=== PATIENT | female | born 1985 | race Two or more races ===

== ENCOUNTER 2020-06-02 10:31 | Emergency (ER) | payer MEDICAID ==
[~2020-06-02] VITALS: Ht 165.1 cm; Wt 65.8 kg
[2020-06-02] MEDS ORDERED: FLUCONAZOLE (100 MG) 100 MG TABLET ONE (11:52)
[2020-06-02] MEDS ORDERED: AZITHROMYCIN 250 MG TABLET ONE (11:52)
[2020-06-02] MEDS ORDERED: CEFTRIAXONE 500 MG VIAL ONE (11:52)
[2020-06-02] MEDS ORDERED: LIDOCAINE /MPF 1% VIAL 5 ML VIAL ONE (11:53)
[2020-06-02 11:56] LABS: BASOPHILS # (AUTO) 0.1 /CMM (0.0-0.2); BASOPHILS % (AUTO) 0.9 % (0.0-2.0); EOSINOPHILS % (AUTO) 0.9 % (0.0-6.0); HEMATOCRIT 40 % (33-45); HEMOGLOBIN 12.8 g/dL (11.5-14.8); LYMPHOCYTES % (AUTO) 23.1 % (20.0-44.0); MEAN CORPUSCULAR HGB CONC 32 g/dl (31.0-36.0); MEAN CORPUSCULAR VOLUME 82 fL (82-100); MONOCYTES # (AUTO) 0.4 /CMM (0.1-1.30); MONOCYTES % (AUTO) 4.9 % (2.0-12.0); NEUTROPHILS % (AUTO) 70.2 % (43.0-81.0); PLATELET COUNT (AUTO) 244 /CMM (150-450); RED BLOOD CELL COUNT(AUTO) 4.83 MIL/uL (4.0-5.2); WHITE BLOOD COUNT (AUTO) 8.6 K/uL (4.3-11.0)
[2020-06-02] MEDS: AZITHROMYCIN 250 MG TABLET PO ONE (12:03)
[2020-06-02] MEDS: CEFTRIAXONE 500 MG VIAL IM ONE (12:03)
[2020-06-02] MEDS: FLUCONAZOLE (100 MG) 100 MG TABLET PO ONE (12:03)
--- NOTE | 2020-06-02 12:05 | NUR ---
VAGINAL PAIN & DISCHARGE. PT AAOX4, VSS. RR EVEN & UNLABORED. MEDICATED PER ERMD ORDERED, PT NICA WELL.
[2020-06-02 12:07] LABS: CALCIUM, SERUM 9.8 mg/dL (8.5-10.1); CREATININE 0.6 mg/dL (0.6-1.3); POTASSIUM 4.2 mmol/L (3.5-5.1)
[2020-06-02 12:56] LABS: APPEARANCE,URINE Clear (CLEAR); BILIRUBIN,URINE Negative (NEGATIVE); BLOOD, URINE Trace-lysed Ery/uL (NEGATIVE); COLOR,URINE Yellow (YELLOW); KETONES,URINE Negative (NEGATIVE); LEUKOCYTE ESTERASE ,URINE Small (NEGATIVE); NITRITE, URINE Negative (NEGATIVE); PROTEIN,URINE Negative (NEGATIVE); UGLUCOSE Negative (NEGATIVE); UROBILINOGEN,URINE 0.2 EU/dL (0.2)
--- NOTE | 2020-06-02 12:59 | NUR ---
PELVIC EXAM DONE BY DR. WALLACE AND WAS CHAPERONED BY THIS INTERVENTION TEACHER.
[2020-06-02 13:01] LABS: BACTERIA,URINE Few /HPF (None Seen); SQUAMOUS EPITHELIAL CELL,UR Few /HPF (None Seen)
[2020-06-02 13:38] VITALS: BP 124/78
--- NOTE | 2020-06-02 13:38 | NUR ---
Patient discharged to home in stable condition. Written and verbal after care instructions given. Patient verbalizes understanding of instruction.
== END 2020-06-02 13:39 | disposition home or self-care (01) ==
LOC: ER 10:36
DX: N89.8 Other specified noninflammatory disorders of vagina (principal); L29.2 Pruritus vulvae; A64 Unspecified sexually transmitted disease; B37.9 Candidiasis, unspecified; D25.9 Leiomyoma of uterus, unspecified; N93.9 Abnormal uterine and vaginal bleeding, unspecified
CPT/HCPCS: 36415; 76856; 80048; 81001; 84703; 85025; 85730; 86850; 87491 ×2; 87591; 96372; 99284; A6403; J0696; J3490; 81000-TC